=== PATIENT | male | born 1930 | race Caucasian/White ===

== ENCOUNTER 2016-12-16 17:45 | Emergency (ER) | payer MEDICARE, BC ==
[2016-12-16] MEDS ORDERED: Acetaminophen TAB* 325 MG PO ONE (19:13)
[2016-12-16 19:21] LABS: Hematocrit 34 % (42-52); Hemoglobin 11.2 g/dl (14.0-18.0); Mean Corpuscular HGB Conc 33 g/dl (31-36); Mean Corpuscular Hemoglobin 32 pg (27-31); Mean Corpuscular Volume 96 fL (80-94); Mean Platelet Volume 8 um3 (7.4-10.4); Red Blood Count 3.52 10^6/ul (4.0-5.4); Red Cell Distribution Width 14 % (10.5-15); White Blood Count 7.3 10^3/ul (3.5-10.8)
--- NOTE | 2016-12-16 19:30 | RAD ---
HISTORY: Cough COMPARISONS: November 07, 2006 VIEWS:1: Single frontal portable view of the chest at 7:15 PM FINDINGS: LINES AND TUBES a left-sided pacemaker is noted: None. CARDIOMEDIASTINAL SILHOUETTE: The cardiac silhouette is enlarged. The aorta is tortuous. The cardiomediastinal silhouette is otherwise normal for portable technique, and is stable from the previous examination. PLEURA: There is elevation left hemidiaphragm suggestive of diaphragmatic paralysis, stable. LUNG PARENCHYMA: The lung volumes are low. The lungs are clear accounting for the phase of respiration. ABDOMEN: The upper abdomen is clear. There is no subphrenic gas. BONES AND SOFT TISSUES: The patient is status post median sternotomy. IMPRESSION: 1. CARDIOMEGALY. 2. STABLE ELEVATION OF THE LEFT HEMIDIAPHRAGM. 3. LOW LUNG VOLUMES.
[2016-12-16 19:35] LABS: Urine Bacteria Absent (Absent); Urine Bilirubin Negative (Negative); Urine Glucose Negative (Negative); Urine Nitrite Negative (Negative)
[2016-12-16 19:36] LABS: Albumin 3.7 g/dL (3.2-5.2); BUN/Creatinine Ratio 20.5 (8-20); Calcium 9.3 mg/dL (8.6-10.3); EGFR African American 56.9 (>60); EGFR Non-African American 44.2 (>60); Globulin 2.8 g/dL (2-4); Potassium 4.4 mmol/L (3.5-5.0); Total Bilirubin 0.4 mg/dL (0.2-1.0); Total Protein 6.5 g/dL (6.4-8.9)
[2016-12-16 19:38] LABS: Troponin I 0.02 ng/mL (<0.04)
[2016-12-16 20:20] VITALS: BP 140/53
--- NOTE | 2016-12-16 21:29 | ED ---
Farzaneh Wilcox Auryana, scribed for Sarkis Reyes MD on 12/16/16 at 1817 . HPI Febrile Illness - HPI Summary HPI Summary: 86 year old male presents with fever starting last night/this morning. reports that she did not take his temperature but he was wearing a fleece jacket and a blanket. He also reports hot flashes, chills, rhinorrhea, mildly productive cough, SOB, and decreased urinary output. He denies any rashes, abdominal pain, or any burning or pain with urination. 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 - History of Current Complaint Chief Complaint: EDFever Time Seen by Provider: 12/16/16 17:59 Hx Obtained From: Patient Onset/Duration: Started Days Ago - 1, Still Present Timing: Constant Initial Severity: Mild Current Severity: None Pain Intensity: 0 Pain Scale Used: 0-10 Numeric Alleviating Factors: Other: - spontaneous resolution of fever Associated Signs and Symptoms: Chills, Cough - mild, SOB, Other: - decreased urinary output, rhinorrhea, hot flashes - Allergy/Home Medications Allergies/Adverse Reactions: Allergies Allergy/AdvReac Type Severity Reaction Status Date / Time No Known Allergies Allergy Verified 12/16/16 17:52 Home Medications: Home Medications Apixaban* [Eliquis*] 5 mg PO BID 12/16/16 [History Confirmed 12/16/16] Aspirin EC Low Dose* [Ecotrin EC Low Dose 81 MG*] 81 mg PO DAILY 12/16/16 [ History Confirmed 12/16/16] Atorvastatin* [Lipitor 20 MG*] 20 mg PO EVERY OTHER DAY 12/16/16 [History Confirmed 12/16/16] Atorvastatin* [Lipitor*] 40 mg PO EVERY OTHER DAY 12/16/16 [History Confirmed ] Cholecalciferol [Vitamin D3] 5,000 unit PO 12/16/16 [History] Clopidogrel TAB* [Plavix TAB*] 37.5 mg PO DAILY 12/16/16 [History Confirmed 02/24] Doxazosin 4 mg 12/16/16 [History] Losartan Potassium 100 mg PO DAILY 12/16/16 [History Confirmed 12/16/16] Metoprolol Tartrate TAB* [Lopressor TAB*] 12.5 mg PO BID 12/16/16 [History Confirmed 12/16/16] Nitroglycerin TAB 0.4 MG* 0.4 mg SL Q5M PRN 12/16/16 [History Confirmed 12/16/16 ] amLODIPine TAB* [Norvasc 5 mg TAB*] 5 mg PO DAILY 12/16/16 [History Confirmed ] PMH/Surg Hx/FS Hx/Imm Hx Cardiovascular History: Reports: 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 , Hx Hypercholesterolemia, Hx Hypertension, Hx Pacemaker/ICD - Surgical History Surgery Procedure, Year, and Place: CABG 1983 Infectious Disease History: No Infectious Disease History: Denies: Traveled Outside the [place] in Last 30 Days - Family History Known Family History: Positive: Cardiac Disease - [place] Negative: Diabetes - Social History Occupation: Retired Lives: With Family Alcohol Use: None Hx Substance Use: No Substance Use Type: Reports: None Hx Tobacco Use: No Smoking Status (MU): Never Smoked Tobacco Review of Systems Positive: Fever, Chills, Other - hot flashes Eyes: Negative Positive: Nasal Discharge Cardiovascular: Negative Positive: Shortness Of Breath, Cough - mild Gastrointestinal: Negative Negative: Abdominal Pain Positive: other - decreased urinary output . Negative: burning, pain Musculoskeletal: Negative Skin: Negative Negative: Rash Neurological: Negative Psychological: Normal All Other Systems Reviewed And Are Negative: Yes Physical Exam Triage Information Reviewed: Yes Vital Signs On Initial Exam: Initial Vitals Temp Pulse Resp BP Pulse Ox 100.7 F 78 20 182/62 95 12/16/16 17:48 12/16/16 17:48 12/16/16 17:48 12/16/16 17:48 12/16/16 17:48 Vital Signs Reviewed: Yes Appearance: Positive: Well-Appearing, No Pain Distress, Well-Nourished Skin: Positive: Warm, Skin Color Reflects Adequate Perfusion, Dry Head/Face: Positive: Normal Head/Face Inspection Eyes: Positive: Normal ENT: Positive: Normal ENT inspection Neck: Positive: Supple, Nontender Respiratory/Lung Sounds: Positive: Breath Sounds Present, Rales - crackles at the left base Cardiovascular: Positive: RRR, Leg Edema Left - pitting edema, Leg Edema Right - pitting edema Abdomen Description: Positive: Nontender, Soft Bowel Sounds: Positive: Present Musculoskeletal: Positive: Normal Neurological: Positive: Normal Psychiatric: Positive: Normal, Affect/Mood Appropriate Diagnostics - Vital Signs Vital Signs Temp Pulse Resp BP Pulse Ox 12/16/16 17:51 100.7 F 78 20 182/62 95 12/16/16 17:48 100.7 F 78 20 182/62 95 - Laboratory Lab Results: Lab Results 12/16/16 12/16/16 12/16/16 Range/Units 19:04 19:04 19:04 WBC 7.3 (3.5-10.8) 10^3/ul RBC 3.52 L (4.0-5.4) 10^6/ul Hgb 11.2 L (14.0-18.0) g/dl Hct 34 L (42-52) % MCV 96 H (80-94) fL MCH 32 H (27-31) pg MCHC 33 (31-36) g/dl RDW 14 (10.5-15) % Plt Count 179 (150-450) 10^3/ul MPV 8 (7.4-10.4) um3 Neut % (Auto) 83.9 H (38-83) % Lymph % (Auto) 6.2 L (25-47) % Harper % (Auto) 6.8 (1-9) % Eos % (Auto) 0.7 (0-6) % Baso % (Auto) 2.4 H (0-2) % Absolute Neuts (auto) 6.2 (1.5-7.7) 10^3/ul Absolute Lymphs (auto) 0.5 L (1.0-4.8) 10^3/ul Absolute Monos (auto) 0.5 (0-0.8) 10^3/ul Absolute Eos (auto) 0.1 (0-0.6) 10^3/ul Absolute Basos (auto) 0.2 (0-0.2) 10^3/ul Absolute Nucleated RBC 0 10^3/ul Nucleated RBC % 0 INR (Anticoag Therapy) 1.44 H (0.89-1.11) Sodium 136 (133-145) mmol/L Potassium 4.4 (3.5-5.0) mmol/L Chloride 107 (101-111) mmol/L Carbon Dioxide 24 (22-32) mmol/L Anion Gap 5 (2-11) mmol/L BUN 31 H (6-24) mg/dL Creatinine 1.51 H (0.67-1.17) mg/dL Est GFR ( Amer) 56.9 (>60) Est GFR (Non-Af Amer) 44.2 (>60) BUN/Creatinine Ratio 20.5 H (8-20) Glucose 100 (70-100) mg/dL Lactic Acid (0.5-2.0) mmol/L Calcium 9.3 (8.6-10.3) mg/dL Total Bilirubin 0.40 (0.2-1.0) mg/dL AST 16 (13-39) U/L ALT 16 (7-52) U/L Alkaline Phosphatase 74 (34-104) U/L Troponin I 0.02 (<0.04) ng/mL Total Protein 6.5 (6.4-8.9) g/dL Albumin 3.7 (3.2-5.2) g/dL Globulin 2.8 (2-4) g/dL Albumin/Globulin Ratio 1.3 (1-3) Urine Color Urine Appearance Urine pH (5-9) Ur Specific Townsend (1.010-1.030) Urine Protein (Negative) Urine Ketones (Negative) Urine Blood (Negative) Urine Nitrate (Negative) Urine Bilirubin (Negative) Urine Urobilinogen (Negative) Ur Leukocyte Esterase (Negative) Urine WBC (Auto) (Absent) Urine RBC (Auto) (Absent) Ur Squamous Epith Cells (Absent) Urine Bacteria (Absent) Urine Glucose (Negative) Urine Ascorbic Acid (Negative) 12/16/16 12/16/16 Range/Units 19:04 19:11 WBC (3.5-10.8) 10^3/ul RBC (4.0-5.4) 10^6/ul Hgb (14.0-18.0) g/dl Hct (42-52) % MCV (80-94) fL MCH (27-31) pg MCHC (31-36) g/dl RDW (10.5-15) % Plt Count (150-450) 10^3/ul MPV (7.4-10.4) um3 Neut % (Auto) (38-83) % Lymph % (Auto) (25-47) % Harper % (Auto) (1-9) % Eos % (Auto) (0-6) % Baso % (Auto) (0-2) % Absolute Neuts (auto) (1.5-7.7) 10^3/ul Absolute Lymphs (auto) (1.0-4.8) 10^3/ul Absolute Monos (auto) (0-0.8) 10^3/ul Absolute Eos (auto) (0-0.6) 10^3/ul Absolute Basos (auto) (0-0.2) 10^3/ul Absolute Nucleated RBC 10^3/ul Nucleated RBC % INR (Anticoag Therapy) (0.89-1.11) Sodium (133-145) mmol/L Potassium (3.5-5.0) mmol/L Chloride (101-111) mmol/L Carbon Dioxide (22-32) mmol/L Anion Gap (2-11) mmol/L BUN (6-24) mg/dL Creatinine (0.67-1.17) mg/dL Est GFR ( Amer) (>60) Est GFR (Non-Af Amer) (>60) BUN/Creatinine Ratio (8-20) Glucose (70-100) mg/dL Lactic Acid 0.8 (0.5-2.0) mmol/L Calcium (8.6-10.3) mg/dL Total Bilirubin (0.2-1.0) mg/dL AST (13-39) U/L ALT (7-52) U/L Alkaline Phosphatase (34-104) U/L Troponin I (<0.04) ng/mL Total Protein (6.4-8.9) g/dL Albumin (3.2-5.2) g/dL Globulin (2-4) g/dL Albumin/Globulin Ratio (1-3) Urine Color Yellow Urine Appearance Clear Urine pH 5.0 (5-9) Ur Specific Townsend 1.016 (1.010-1.030) Urine Protein Negative (Negative) Urine Ketones Negative (Negative) Urine Blood 1+ H (Negative) Urine Nitrate Negative (Negative) Urine Bilirubin Negative (Negative) Urine Urobilinogen Negative (Negative) Ur Leukocyte Esterase Negative (Negative) Urine WBC (Auto) Absent (Absent) Urine RBC (Auto) 2+(6-10/hpf) H (Absent) Ur Squamous Epith Cells Present H (Absent) Urine Bacteria Absent (Absent) Urine Glucose Negative (Negative) Urine Ascorbic Acid * H (Negative) Result Diagrams: 12/16/16 19:04 12/16/16 19:04 Lab Statement: Any lab studies that have been ordered have been reviewed, and results considered in the medical decision making process. - Radiology CXR Xray Interpretation: Positive (See Comments) - IMPRESSION: 1. CARDIOMEGALY. 2. STABLE ELEVATION OF THE LEFT HEMIDIAPHRAGM. 3. LOW LUNG VOLUMES. _ Radiology Interpretation Completed By: Radiologist Course/Dx - Course Course Of Treatment: Mr. Sweeney presented with fevers for a day or so with a runny nose and a mild cough. He spiked up to 103.9 here and defervesced with acetaminophen. His WBC's were normal and his CXR and U/A unremarkable. He felt completely better and wanted to go home. This may be viral or tick-borne and I recommended close F/U. - Diagnoses Provider Diagnoses: Febrile illness, acute Discharge - Discharge Plan Condition: Stable Disposition: HOME Patient Education Materials: Fever in Adults (ED) Referrals: [facility] [place] PHYSICIAN REFERRAL [Outside] - 2 Days The documentation as recorded by the Farzaneh arndt Auryana accurately reflects the service I personally performed and the decisions made by me, Sarkis Reyes MD.
[2016-12-18 18:34] LABS: B. miyamotoi PCR, B Negative (Negative); Babesia divergens/MO-1 Negative (Negative); Babesia ducani Negative (Negative); Ehrlichia ewingii/canis Negative (Negative)
--- NOTE | 2016-12-18 18:49 | CONSULT ---
Consult Consult: Mr. 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 I called him and he is feeling better and believes his fever broke last night. I sent him a script for Doxycycline and he agreed to take it.
== END 2016-12-16 20:33 | disposition home or self-care (01) ==
LOC: ED 17:45
DX: R50.9 Fever, unspecified (principal); R06.02 Shortness of breath; R05 Cough
CPT/HCPCS: 36415; 71010; 80053; 81003; 81015; 83605; 84484; 85025; 85610; 86618; 87040; 87798; 99282; A9270-GY

== ENCOUNTER 2018-05-29 14:23 | Observation (INO) | payer MEDICARE, BC ==
--- NOTE | 2018-05-29 14:41 | ED ---
Syncope/Near Syncope - HPI Summary HPI Summary: An 88 y/o male presents to [facility] with a chief complaint of syncope at 13:30 . Per EMS, the patient was found hypotensive. The patient states that before his syncopal episode he felt weak and dizzy with cold sweats. He was shopping at [employer] with his when at about 5 minutes into his shopping he felt those symptoms and went to sit down. The patient claims that he was sitting down for at least 15 minutes. His found the patient in the chair unresponsive with LOC. The patient is unsure for how long he lost consciousness. He claims that he felt fine beforehand when he was at his house. The patient currently admits to having some nausea and some weakness stating that he has little energy, but tries to walk 1/2 mile per day. The patient denies CP, SOB, dysuria, hematuria or irregular bowel movements. The patient claims that he has a good appetite. - History Of Current Complaint Chief Complaint: EDSyncope Time Seen by Provider: 05/29/18 14:27 Hx Obtained From: Patient Onset/Duration: Sudden Onset, Lasting Minutes, Resolved Timing: Intermittent Episode Lasting - Patient is unsure how long Context: Loss Of Consciousness Activity At Onset: At Rest Associated Head Trauma: No Aggravating Factor(s): Nothing Alleviating Factor(s): Nothing Associated Signs And Symptoms: Diaphoresis - before syncopal episode, Dizzy - before syncopal episode, Other - nausea - Allergies/Home Medications Allergies/Adverse Reactions: Allergies Allergy/AdvReac Type Severity Reaction Status Date / Time No Known Allergies Allergy Verified 05/29/18 15:08 Home Medications: Home Medications Acetaminophen [Acetaminophen Extra Strength] 1,000 mg PO Q6HR PRN 05/29/18 [ History Confirmed 05/29/18] Apixaban* [Eliquis*] 5 mg PO BID 05/29/18 [History Confirmed 05/29/18] Atorvastatin* [Lipitor*] 20 mg PO EVERY OTHER DAY 05/29/18 [History Confirmed ] Atorvastatin* [Lipitor*] 40 mg PO EVERY OTHER DAY 05/29/18 [History Confirmed ] Cholecalciferol CAP/TAB(NF) [Vitamin D3 CAP/TAB (NF)] 5,000 unit PO DAILY [History Confirmed 05/29/18] Doxazosin TAB* [Cardura TAB*] 4 mg PO BEDTIME 05/29/18 [History Confirmed ] Losartan TAB* [Cozaar TAB*] 100 mg PO DAILY 05/29/18 [History Confirmed 05/29/18 ] Metoprolol Tartrate TAB* [Lopressor TAB*] 12.5 mg PO BID 05/29/18 [History Confirmed 05/29/18] Nitroglycerin TAB 0.4 MG* 0.4 mg SL Q5M PRN 05/29/18 [History Confirmed 05/29/18 ] amLODIPine TAB* [Norvasc 5 mg TAB*] 5 mg PO DAILY 05/29/18 [History Confirmed ] PMH/Surg Hx/FS Hx/Imm Hx Endocrine/Hematology History: Denies: Hx Diabetes Cardiovascular History: Reports: Hx Hypertension Denies: Hx Hypercholesterolemia Infectious Disease History: No Infectious Disease History: Denies: Traveled Outside the [place] in Last 30 Days - Family History Known Family History: Positive: Cardiac Disease, Hypertension - Social History Lives: With Family Alcohol Use: None Substance Use Type: Reports: None Smoking Status (MU): Former Smoker Review of Systems Positive: Chills - prior to syncope, Skin Diaphoresis - prior to syncope. 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 Skin: The skin is warm and dry and skin color reflects adequate perfusion. HEENT: The head is normocephalic and atraumatic. The pupils are equal and reactive. The conjunctivae are clear and without drainage. Nares are patent and without drainage. Mouth reveals moist mucous membranes and the throat is without erythema and exudate. The external ears are intact. The ear canals are patent and without drainage. The tympanic membranes are intact. Neck: The neck is supple with full range of motion and non-tender. There are no carotid bruits. There is no neck vein distension. Respiratory: Chest is non-tender. Lungs are clear to auscultation and breath sounds are symmetrical and equal. Cardiovascular: Heart is regular rate and rhythm. There is no murmur or rub auscultated. There is no peripheral edema and pulses are symmetrical and equal. Abdomen: The abdomen is soft and non-tender. There are normal bowel sounds heard in all four quadrants and there is no organomegaly palpated. Musculoskeletal: There is no back tenderness noted. Extremities are non-tender with full range of motion. There is good capillary refill. There is no peripheral edema or calf tenderness elicited. Neurological: Patient is alert and oriented to person, place and time. The patient has symmetrical motor strength in all four extremities. Cranial nerves are grossly intact. Deep tendon reflexes are symmetrical and equal in all four extremities. Psychiatric: The patient has an appropriate affect and does not exhibit any anxiety or depression. Triage Information Reviewed: Yes Vital Signs On Initial Exam: Initial Vitals Temp Pulse Resp BP Pulse Ox 97.1 F 65 13 140/67 95 05/29/18 14:24 05/29/18 14:24 05/29/18 14:24 05/29/18 14:24 05/29/18 14:24 Vital Signs Reviewed: Yes Diagnostics - Vital Signs Vital Signs Temp Pulse Resp BP Pulse Ox 05/29/18 14:24 97.1 F 65 13 140/67 95 - Laboratory Result Diagrams: 05/29/18 14:47 05/29/18 14:47 Lab Statement: Any lab studies that have been ordered have been reviewed, and results considered in the medical decision making process. - Radiology CXR Radiology Interpretation Completed By: Radiologist Summary of Radiographic Findings: POSTSURGICAL CHANGES, NO EVIDENCE FOR ACUTE FINDING. ED physician has reviewed this imaging report. - EKG 14:26 Cardiac Rate: NL - 60 bpm EKG Rhythm: Sinus Rhythm Summary of EKG Findings: Normal sinus rhythm, normal ST, no ectopy, no STEMI Course/Dx Course Of Treatment: Mr. Merrill presented to the emergency department after a significant syncopal episode. He was out shopping with his and began to feel lightheaded and clammy and excused himself to go sit down. When his rejoined and he was unresponsive in the chair. He did wake up and by the time the ambulance got there he was starting to feel better and by the time he got here he felt well. He was nontoxic in appearance and his vital signs were stable. His initial workup here in the emergency department was unremarkable and I asked the hospitalist to evaluate him for his syncope. - Diagnoses Provider Diagnoses: Syncope - Physician Notifications Discussed Care of Patient With: Meche Prater Time Discussed With Above Provider: 16:00 Instructed by Provider To: Admit As Inpatient Discharge - Sign-Out/Discharge Documenting (check all that apply): Patient Departure - Admit - Discharge Plan Condition: Fair Disposition: ADMITTED TO [facility] - Billing Disposition and Condition Condition: FAIR Disposition: Admitted to [facility] - Attestation Statements Document Initiated by Scribe: Yes Documenting Scribe: Caleb Cruz Provider For Whom Artibe is Documenting (Include Credential): Sarkis Reyes MD Scribe Attestation: Caleb Wilcox, scribed for Sarkis Reyes MD on 05/29/18 at 1757. Scribe Documentation Reviewed: Yes Provider Attestation: The documentation as recorded by the Caleb arndt accurately reflects the service I personally performed and the decisions made by me, Sarkis Reyes MD Status of Scribe Document: Viewed
[2018-05-29 14:56] LABS: ABS Basophils 0.1 10^3/ul (0-0.2); ABS Eosinophils 0.2 10^3/ul (0-0.6); ABS Lymphocytes 1.2 10^3/ul (1.0-4.8); ABS Monocytes 0.3 10^3/ul (0-0.8); ABS Neutrophils 4.8 10^3/ul (1.5-7.7); ABS Nucleated RBC 0 10^3/ul; Eosinophil % 3.1 %; Hematocrit 33 % (42-52); Hemoglobin 11.1 g/dl (14.0-18.0); Lymphocyte % 18.1 %; Mean Corpuscular HGB Conc 33 g/dl (31-36); Mean Corpuscular Hemoglobin 32 pg (27-31); Mean Corpuscular Volume 96 fL (80-94); Mean Platelet Volume 8.6 fL (7.4-10.4); Nucleated Red Blood Cells % 0; Platelet Count 212 10^3/ul (150-450); Red Blood Count 3.46 10^6/ul (4.00-5.40); Red Cell Distribution Width 14 % (10.5-15); White Blood Count 6.6 10^3/ul (3.5-10.8)
[2018-05-29 15:08] LABS: INR 1.48 (0.77-1.02)
[2018-05-29 15:23] LABS: Albumin 3.4 g/dL (3.2-5.2); Albumin/Globulin Ratio 1.3 (1-3); BUN/Creatinine Ratio 19.8 (8-20); C Reactive Protein 3.08 mg/L (<8.01); Calcium 9.1 mg/dL (8.6-10.3); EGFR Non-African American 36.7 (>60); Globulin 2.7 g/dL (2-4); Magnesium 1.9 mg/dL (1.9-2.7); Potassium 4.9 mmol/L (3.5-5.0); Total Bilirubin 0.4 mg/dL (0.2-1.0); Total Protein 6.1 g/dL (6.4-8.9)
[2018-05-29 15:42] LABS: TSH (Thyroid Stimulating Horm) 6.73 mcIU/mL (0.34-5.60)
[2018-05-29] MEDS: Metoprolol Tartrate TAB* 25 MG PO SCH (20:24)
[2018-05-29] MEDS: Apixaban* 5 MG TAB PO SCH (20:24)
[2018-05-29] MEDS: Doxazosin TAB* 2 MG PO SCH (20:24)
--- NOTE | 2018-05-29 21:43 | HP ---
CC: Dr. Donis; Dr. Mills * HISTORY AND PHYSICAL: DATE OF ADMISSION: 05/29/18 PROVIDER: Dayanara Mccullough NP PRIMARY CARE PROVIDER: Dr. Donis. CARDIOLOGY PROVIDER: Dr. Mills. ATTENDING PHYSICIAN: Dr. Prater * (dictated by Dayanara Mccullough NP). CHIEF COMPLAINT: Syncope. HISTORY OF PRESENT ILLNESS: Mr. Sweeney is an 88-year-old male with a past medical history significant for tachybrady syndrome, status post pacer; hypertension; hyperlipidemia; coronary artery disease, status post CABG and multiple stents, who presented to the ED today after experiencing a syncopal episode. The patient reports that over the past 2 weeks, he has been having periodic episodes of lightheadedness. He had one such episode of lightheadedness this morning after taking his blood pressure medication, which resolved. He then went to the store with his and suddenly felt weak and dizzy with cold sweats and he went to sit down. When his came over to check on him, she found him unresponsive in the chair and she is unsure the amount of time he had lost consciousness. She reported that he looked very pale and took a little bit to come to but was unable to tell me how long. She called EMS and when they arrived, they found that his blood pressure was in the 70s systolically. Upon arrival in the ED, the patient had an EKG, which showed a paced rhythm with rates in the 60s. He had a chest x- ray, which showed no evidence of acute findings. In the ED, the patient denied any chest pain, shortness of breath, cough, dysuria, focal weakness, numbness, or tingling in his extremities. Of note, the patient did have bronchitis a few weeks ago and was treated with azithromycin; however, he reports his symptoms have resolved. He does not have any fever or chills and has been in his usual state of health. He does report having some shortness of breath with exertion, but he says that this has been stable over the years. He does not report feeling any palpitations or like his heart was racing. He has had his regular appetite and has been eating and drinking his normal. He does report some occasional nausea , but no vomiting. The hospitalist team was asked to admit this patient for further workup of his syncope. PAST MEDICAL HISTORY: Coronary artery disease, status post CABG and multiple stents; tachybrady syndrome, status post dual-chamber pacemaker placement; hypertension; hyperlipidemia. PAST SURGICAL HISTORY: CABG in 1983; pacemaker implantation in 2015 and several stents, most recent in May 2016. MEDICATIONS: Home medications: 1. Losartan 100 mg p.o. daily. 2. Lipitor alternating 20 mg and 40 mg every other day, so one day he takes 20 mg and the next day he takes 40 mg and then the day after that 20 again. 3. Eliquis 5 mg p.o. b.i.d. 4. Acetaminophen 1000 mg p.o. q.6 hours p.r.n. 5. Amlodipine 5 mg p.o. daily. 6. Metoprolol tartrate 12.5 mg p.o. b.i.d. 7. Nitroglycerin tabs 0.4 mg sublingual q.5 minutes p.r.n.; however, the patient reports having never taken this medication ever. 8. Vitamin D3 5000 units p.o. daily. 9. Cardura 4 mg p.o. at bedtime. ALLERGIES: The patient has no known allergies. FAMILY HISTORY: The patient has a strong family history of heart disease in both his mother, father, and son. The patient did not have any family history of diabetes or cancer. SOCIAL HISTORY: The patient is a former smoker. He smoked 3 packs a day from the age of 20 to 34 and smoked occasional cigars until 1983. The patient does not drink any alcohol. The patient would like to be a DNR. I have completed MOLST form with him. The patient's medical decision maker will be his , Mallory Sweeney. REVIEW OF SYSTEMS: I performed a 14-point review of systems. All the pertinent positives and negatives are mentioned in the history of present illness. The remaining review of systems is negative. PHYSICAL EXAMINATION GENERAL: The patient is alert, pleasant, appears to be in no acute distress. VITAL SIGNS: Temperature 97.1, heart rate 65, respiratory rate 19, O2 sat 95% on room air, blood pressure 140/67. HEENT: Normocephalic, atraumatic. Pupils are equal, round, and reactive to light and accommodation. Extraocular movements are intact. NECK: Supple. No lymphadenopathy noted. No JVD appreciated. RESPIRATORY: No accessory muscle use and lungs are clear to auscultation. Normal work of breathing. CARDIAC: Regular rate and rhythm. S1 and S2 present. The patient does have a 2/6 systolic murmur. ABDOMEN: Soft, nontender, nondistended. There are bowel sounds x4. EXTREMITIES: No lower extremity edema. DP and PT pulses are 2+ and symmetric. MUSCULOSKELETAL: No clubbing or cyanosis noted. The patient exhibited 5/5 strength in all 4 extremities. No droop or drift. NEURO: The patient is alert and oriented x3. PSYCH: The patient is calm and cooperative. SKIN: There are no rashes or abnormalities seen. DIAGNOSTIC STUDIES/LAB DATA: Sodium 139, potassium 4.9, chloride 109, carbon dioxide 26, anion gap 4, BUN 35, creatinine 1.77, glucose 120, lactic acid 0.9, calcium 9.1, magnesium 1.9. Total bili 0.4, AST 14, ALT 10, alk phos 68. Troponin 0.03. CRP 3.08. BNP 162. Total protein 6.1, albumin 3.4, globulin 2.7, albumin- globulin ratio 1.3. TSH 6.73. INR 1.48. White blood cells 6.6, RBC 3.46, hemoglobin 11.1, hematocrit 33, MCV 96, MCH 32. UA is pending. The patient's chest x-ray demonstrates postsurgical changes. No evidence for acute findings. EKG with sinus rhythm, no ST elevation with rates in the 60s. ASSESSMENT: The patient is an 88-year-old male with a past medical history significant for tachybrady syndrome, status post pacemaker placement; coronary artery disease, status post coronary artery bypass graft and stents, who presented to the ED with syncope and will be admitted to the hospitalist service for further workup of the syncope. PLAN: 1. Syncope. Differentials include dehydration and orthostatic hypotension versus vasovagal versus cardiac in the setting of an extensive cardiac history. I will monitor this patient on telemetry. EKG was without eveidence of ischemia and the patient's initial troponin was 0.03; however, I will continue to monitor troponins for 2 more blood draws. I will put in for an interrogation of his pacemaker to monitor for any arrhythmias. I will also order an echo for him to evaluate LV function and valve function. The patient does have a slight acute kidney injury above his baseline, which suggests he might have some dehydration as well. I will give him IV fluids at 75 mL per hour. I will also order orthostatic vitals. It is possible that there is infectious component of this; however, as the patient is afebrile and without leukocytosis, this is less likely. UA is pending, however. Also, of note, the patient does have a TSH of 6.73, which could be contributing and I will order a free T4 to follow up on this. 2. Coronary artery disease, status post stents. I will continue the patient's Lipitor as well as his Eliquis, which the patient says that he was put on after stopping aspirin and Plavix after his stents. I will also continue the patient' s metoprolol. 3. Hypertension. I will continue the patient's losartan and Norvasc and Cardura; however, these might need to be adjusted going forward if the patient is indeed having frequent episodes of orthostatic hypotension. 4. Acute kidney injury. The patient has a creatinine of 1.77 today, which is elevated from a few days ago when his creatinine was 1.44. I will give him IV fluids at 75 mL an hour, as this could be secondary to hypovolemia. 5. Macrocytic hypochromic anemia. The patient's H and H is stable and this appears stable at 11.1 and 33 and this appears to be his baseline compared to previous visit from 2017. 6. Diet. The patient can have a heart-healthy diet. 7. DVT prophylaxis. Heparin subcu. 8. Code status. DNR. 9. Disposition. Observation. Anticipate discharge to home when medically stable. TIME SPENT: Time spent for this admission was 60 minutes and 35 minutes was spent with the patient discussing medications, past medical history, and events leading up to the arrival today and performing a physical exam. The case has been reviewed with the attending, Dr. Prater, who agrees with the plan of care. DAYANARA MCCULLOUGH, [place] [id number]/[facility] #: [id number] [place]
[2018-05-29 22:40] LABS: Urine Appearance Cloudy; Urine Bilirubin Negative (Negative); Urine Blood Negative (Negative); Urine Color Yellow; Urine Glucose Negative (Negative); Urine Ketones Negative (Negative); Urine Nitrite Negative (Negative); Urine Protein Negative (Negative); Urine Specific Gravity 1.025 (1.010-1.030); Urine Urobilinogen Negative (Negative)
[2018-05-30] MEDS: NS 0.9% 1000 ML* 1,000 ML IV SCH ×2 (04:41→18:27)
[2018-05-30 06:49] LABS: ABS Basophils 0.1 10^3/ul (0-0.2); ABS Eosinophils 0.4 10^3/ul (0-0.6); ABS Lymphocytes 1.9 10^3/ul (1.0-4.8); ABS Monocytes 0.4 10^3/ul (0-0.8); ABS Neutrophils 4.1 10^3/ul (1.5-7.7); ABS Nucleated RBC 0 10^3/ul; Eosinophil % 5.6 %; Hematocrit 31 % (42-52); Hemoglobin 10.3 g/dl (14.0-18.0); Lymphocyte % 26.9 %; Mean Corpuscular HGB Conc 33 g/dl (31-36); Mean Corpuscular Hemoglobin 32 pg (27-31); Mean Corpuscular Volume 96 fL (80-94); Mean Platelet Volume 8.7 fL (7.4-10.4); Nucleated Red Blood Cells % 0; Platelet Count 183 10^3/ul (150-450); Red Blood Count 3.24 10^6/ul (4.00-5.40); Red Cell Distribution Width 15 % (10.5-15); White Blood Count 6.9 10^3/ul (3.5-10.8)
[2018-05-30 07:05] LABS: BUN/Creatinine Ratio 23.2 (8-20); Blood Urea Nitrogen 35 mg/dL (6-24); CO2 Carbon Dioxide 24 mmol/L (22-32); Calcium 8.8 mg/dL (8.6-10.3); Glucose 96 mg/dL (70-100); Potassium 4.3 mmol/L (3.5-5.0); Sodium 140 mmol/L (135-145)
[2018-05-30 07:07] LABS: Anion Gap 4 mmol/L (2-11); Chloride 112 mmol/L (101-111)
[2018-05-30 07:45] LABS: Free T4 1.05 ng/dL (0.61-1.12)
[2018-05-30] MEDS: Apixaban* 5 MG TAB PO SCH ×2 (08:43→20:27)
[2018-05-30] MEDS: Metoprolol Tartrate TAB* 25 MG PO SCH ×2 (08:43→20:28)
[2018-05-30] MEDS ORDERED: Atorvastatin* 20 MG TAB PO SCH (09:00)
[2018-05-30] MEDS ORDERED: amLODIPine TAB* 5 MG PO SCH (09:00)
[2018-05-30] MEDS ORDERED: Losartan TAB* 25 MG PO SCH (09:00)
--- NOTE | 2018-05-30 10:40 | PN ---
Subjective Date of Service: 05/30/18 Interval History: Pt is feeling well today, and denies any dizziness, lightheadedness, diaphoresis , hot/cold flashes, or feeling faint. He states that once the fluid was started , his "head cleared up." He states that his cardiac medications were last adjusted over one year ago. He just moved here from [place] and will see his cell attendant helper at the beginning of June. He has a history of AF, bypass surgery, and stent placement. He has a pacemaker. He states that he feels short of breathe, but that this is his baseline and remains unchanged. In the past, he has had both cardiac and pulmonary work-ups for this, both revealing no cause for shortness of breath. Pt states that he is chronically anemic. Objective Active Medications: Amlodipine Besylate (Norvasc Tab*) 5 mg PO DAILY PRECIOUS Apixaban (Eliquis*) 5 mg PO BID PRECIOUS Atorvastatin Calcium (Lipitor*) 20 mg PO EVERY OTHER DAY PRECIOUS Atorvastatin Calcium (Lipitor*) 40 mg PO EVERY OTHER DAY PRECIOUS Doxazosin Mesylate (Cardura Tab*) 4 mg PO BEDTIME PRECIOUS Sodium Chloride (Ns 0.9% 1000 Ml*) 1,000 mls @ 75 mls/hr IV PER RATE PRECIOUS Losartan Potassium (Cozaar Tab*) 100 mg PO DAILY PRECIOUS Metoprolol Tartrate (Lopressor Tab*) 12.5 mg PO BID PRECIOUS Vital Signs - 8 hr Vital Signs: Temp Pulse Resp BP Pulse Ox 97.3 F 59 16 136/59 94 05/30/18 07:37 05/30/18 07:37 05/30/18 08:05 05/30/18 07:37 05/30/18 07:37 Oxygen Devices in Use Now: None Eyes: No Scleral Icterus, PERRLA, - - EOMI. Ears/Nose/Mouth/Throat: NL Teeth, Lips, Gums, Mucous Membranes Moist Neck: NL Appearance and Movements; NL JVP, Trachea Midline Respiratory: Symmetrical Chest Expansion and Respiratory Effort, Clear to Auscultation Cardiovascular: RRR, - - Systolic murmur; withgout rubs, clicks, gallops. Without JVD, carotid bruits. Abdominal: NL Sounds; No Tenderness; No Distention, No Hepatosplenomegaly Extremities: No Clubbing, Cyanosis - B/l LE 1+ pitting edema Skin: No Rash or Ulcers Neurological: Alert and Oriented x 3, NL Sensation Result Diagrams: 05/30/18 06:42 05/30/18 06:42 Assess/Plan/Problems-Billing Assessment: - Patient Problems (1) Syncope Code(s): R55 - SYNCOPE AND COLLAPSE SNOMED Code(s): 863736645 Comment: -Symptoms resolved; pt feeling well -Troponins WNL, orthostatics WNL, TSH elevated with normal free T4 -Telemetry monitoring overnight revealed no abnormal episodes -Pacemaker interrogation reveals prolonged episode of atrial flutter -Await ECHO results -Consult Dr. Chen ordered (2) Chronic anemia Code(s): D64.9 - ANEMIA, UNSPECIFIED SNOMED Code(s): 000160671 Comment: -Drop in Hgb from 11.1 to 10.3 is likely dilutional -Macrocytic anemia- pt is not deficient in Folate or B12 (3) Systolic murmur Code(s): R01.1 - CARDIAC MURMUR, UNSPECIFIED SNOMED Code(s): 47066783 Comment: -Systolic murmur noted on auscultation -ECHO to be performed today (4) Acute kidney injury Code(s): N17.9 - ACUTE KIDNEY FAILURE, UNSPECIFIED SNOMED Code(s): 04859225 Comment: -Likely due to hypovolemia -Resolved; Cr now at baseline at 1.44 (5) Coronary artery disease Code(s): I25.10 - ATHSCL HEART DISEASE OF [place] CORONARY ARTERY W/O ANG PCTRS SNOMED Code(s): 72060405 Comment: -Continue metoprolol, Lipitor, Eliquis (6) Hypertension Current Visit: Yes Status: Acute Code(s): I10 - ESSENTIAL (PRIMARY) HYPERTENSION SNOMED Code(s): 07822202 Comment: -Continue medication Status and Disposition: D/c home if stable once work up is completed.
[2018-05-30] MEDS ORDERED: Perflutren Lipid Microsphere* 3 ML VIAL ONE (10:47)
[2018-05-30 11:16] LABS: Folate > 20.00 ng/mL (>3.99)
--- NOTE | 2018-05-30 13:03 | ECHO ---
Patient: ANDERSON GONZALES [facility] Rec#: [id number] : 1930 Date: 05/30/2018 Age: 88y Height: 173 cm / 68.1 in Weight: 100 kg / 220.4 lbs Sex: M BSA: 2.13 Room#: 438 Admit Date#: 05/29/2018 Type: Inpatient Referring: MARSHA MCCULLOUGH Reading: Tono Fraser MD Balance Recesser: Loraine Ureña [facility] Transthoracic Echocardiogram Indication: Syncope BP: 137/58 HR: 60 Rhythm: Paced Findings History: Tachy-ernestina s/p/ pacer,HTN,HLD,CAD with CABG'84 and PCI. Technical Comments: The study is technically limited due to patient body habitus. Completed at 1140. Definity used to enhance images. Left Ventricle: The left ventricular chamber size is normal. There is mild to moderately decreased left ventricular systolic function. The estimated ejection fraction is 35-40%. Post surgical hypokinesis of the interventricular septum is observed consistent with coronary artery bypass. There is abnormal ventricular septal wall motion consistent with right ventricular pacemaker. Abnormal left ventricular diastolic function is observed. Abnormal left ventricular diastolic filling is observed, consistent with impaired relaxation. The mid inferolateral, apical septal, apical anterior, apical lateral, and apical inferior wall segments are hypokinetic (score 2). The basal inferior wall segment is akinetic (score 3). The basal inferolateral wall segment is dyskinetic (score 4). Overall wallmotion score index is 1.63 Left Atrium: The left atrium is mild to moderately dilated. Right Ventricle: The right ventricle is not well visualized. A pacemaker wire is visualized in the right ventricle. Right Atrium: The right atrial cavity size is normal. A pacemaker wire is visualized in the right atrium. Aortic Valve: The aortic valve is trileaflet. The aortic valve leaflets are moderately thickened. Systolic excursion of the aortic valve cusps is reduced. Equal velocities with Pedoff and Standard probes. There is moderate aortic stenosis.by continuity. The peak velocities and gradient may be underestimated due to the suboptimal doppler angles and the reduced cardiac output. The Aortic stenosis appears to be moderate to severe by 2d. Consider low gradient aortic stenosis. Mitral Valve: The mitral valve leaflets are mildly thickened. There is trace to mild mitral regurgitation. There is no evidence of mitral stenosis. Tricuspid Valve: The tricuspid valve leaflets are normal. There is trace to mild tricuspid regurgitation. Unable to estimate the right ventricular systolic pressure. There is evidence that pulmonary hypertension may be underestimated. There is no tricuspid stenosis. Pulmonic Valve: The pulmonic valve structure is not well visualized. Pericardium: The pericardium appears normal. Aorta: The ascending aorta is not well visualized. There is no dilatation of the aortic arch. There is no dilation of the aortic root. Pulmonary Artery: The main pulmonary artery is not well visualized. Venous: The venous system is not well visualized. Contrast: Definity was used to optimize study. A total of 4 ml used. Intravenous contrast was used to enhance endocardial border definition. Conclusions There is mild to moderately decreased left ventricular systolic function. The estimated ejection fraction is 35-40%. Post surgical hypokinesis of the interventricular septum is observed consistent with coronary artery bypass. Abnormal left ventricular diastolic filling is observed, consistent with impaired relaxation. The left atrium is mild to moderately dilated. There is moderate aortic stenosis.by continuity. The peak velocities and gradient may be underestimated due to the suboptimal doppler angles and the reduced cardiac output. The Aortic stenosis appears to be moderate to severe by 2d. Consider low gradient aortic stenosis. There is trace to mild mitral regurgitation. There is trace to mild tricuspid regurgitation. There is evidence that pulmonary hypertension may be underestimated. Decrease in EF from 60-65% . The aortic valve area was calculated at 1.3 cm2 last time.(however, the report decribed aortci sclerosis with "normal aortic valve leaflet excursion". Measurements Name Value Normal Range RVDdMajor (2D) 3.8 cm (2.2 - 4.4) IVSd (2D) 0.7 cm (0.6 - 1) LVPWd (2D) 0.7 cm (0.6 - 1) LVIDd (2D) 3.6 cm (3.6 - 5.4) LVIDs (2D) 2.9 cm - LV FS (2D) 19 % (25 - 45) Aortic Annulus 1.8 cm (1.4 - 2.6) Ao root diameter (2D) 3.2 cm (2.1 - 3.5) Aortic arch 2.5 cm (1.8 - 3.4) Descending Ao 0.7 cm - LA dimension (AP) 2D 4.4 cm (2.3 - 3.8) Name Value Normal Range MV E-wave Vmax 0.7 m/sec - MV deceleration time 243 msec - MV A-wave Vmax 0.7 m/sec - MV E:A ratio 1.1 ratio - LV septal e' Vmax 0.05 m/sec - LV lateral e' Vmax 0.09 m/sec - Name Value Normal Range AV Vmax 2.1 m/sec - AV VTI 43.9 cm - AV peak gradient 17 mmHg - AV mean gradient 7 mmHg - LVOT diameter 2 cm - LVOT Vmax 0.5 m/sec - LVOT VTI 19.5 cm - LVOT peak gradient 1 mmHg - STARR (continuity Vmax) 0.7 cm2 - STARR (continuity VTI) 1.4 cm2 - Wallmotion BAS Normal BA Normal BAL Normal MITRA Dyskinetic BI Akinetic BIS Normal MAS Normal MA Normal MAL Normal MIL Hypokinetic HI Normal MIS Normal Hypokinetic AA Hypokinetic AL Hypokinetic AI Hypokinetic APEX Hypokinetic
--- NOTE | 2018-05-30 16:52 | CONS ---
CC: Dr. Tono Fraser; Dr. Mills CARDIOLOGY CONSULTATION: DATE OF CONSULT: CONSULTING PROVIDER: JACQUELINE Huang REASON FOR EVALUATION: Syncope, history of coronary disease, aortic valve disease, tachy-ernestina syndrome. HISTORY OF PRESENT ILLNESS: This is an 88-year-old gentleman who has a history of remote bypass surgery and multiple revascularizations by angioplasty since then, the last one was approximately 2 years ago. At that time, the patient reported he had his left main stented. He said that over the last year he has noted some decrease in his exercise capacity starting about 6 months or so. He said he used to be able to walk a mile in 20 minutes, stopping twice; now he can only walk a half mile in 20 minutes, stopping twice. His who accompanies him also says that he is more fatigued over the last 2 months and has less energy. He says some days he feels "logy." He can feel a fullness in his head which he attributes to sinuses, but he said that there is a more profound weakness recently. No chest pain, no dyspnea on exertion, just fatigue with exertion. He said he has never had chest pain with his coronary issues. He was followed in [place] until recently when he relocated to [place] to be with his son and his son's family in September. Yesterday, he took his medicines at about 8 o'clock in the morning. He had a glass of orange juice and a cup of coffee, but did not eat or drink anything else after that. He went to [facility] and was walking around and said that he felt poorly. He felt "stuffed" in the head and a little lightheaded. He told his he is going to go sit down. He sat for a few minutes and then decided to move to another location in the front of the store. He got up and walked to the next location and sat down and then felt sweaty and warm, got nauseated and felt clammy, and his came over and said that he passed out. There was no incontinence. Apparently, the pneumatic press hand were called and he was found to have a blood pressure in the 70s. He got some fluids and in the ER, he had a paced rhythm in the 60s. He was feeling better at that time. He says that occasionally he will have episodes of near syncope. He said he has had 2 episodes in the last 6 months. They usually occur at rest with minimal exertion and he feels clammy and his blood pressure goes down a couple of minutes and then resolves. He also said in the remote past he had some episodes in the 1970s and had a medical evaluation which was negative. He also had a spell when he lived in [place] and when he lived in [place] many years ago. He said normally his blood pressure runs in the 130s to 135 range. He denies fevers, chills, sweats, nausea, or vomiting. He does have some mild renal insufficiency which has developed recently. He does have sleep apnea, but is not compliant with his mask. Denies any change in his weight. He has some mild edema of his right lower extremity, which is chronic. His medications as an outpatient include amlodipine 5 mg daily, Eliquis 5 mg b.i.d., atorvastatin 20 mg every other day, atorvastatin 40 mg every other day, Cardura 4 mg at bedtime, losartan 100 mg daily, metoprolol 12.5 mg b.i.d. He is not on aspirin. PAST MEDICAL HISTORY: Includes coronary disease, status post coronary bypass grafting in 1983 and 3 stents since then, the last one 2 years ago in his left main as per the patient. He has a history of hypertension, hyperlipidemia, paroxysmal atrial fibrillation first noted 2 years ago. 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 He has renal insufficiency and episodes of syncope over the years. He also was found to have aortic stenosis on his echo today and apparently had some restriction of his leaflets a year ago with a valve area of 1.3 based on the report then. PAST SURGICAL HISTORY: Includes coronary bypass grafting. ALLERGIES: He said he has had some hay fever, but no drug allergies. SOCIAL HISTORY: He is . He had 2 sons, one suddenly at age 39. He has a brother who is 18 months older and has renal insufficiency and cancer. No coronary disease. 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 REVIEW OF SYSTEMS: Review of systems x10 was negative except as above. PHYSICAL EXAM: He is a well-developed obese gentleman, in no apparent distress. No significant JVD. Carotids delayed and diminished with a transmitted murmur or bruit on the left and none on the right. Atraumatic, normocephalic. Extraocular muscles intact. Sclerae anicteric. No cervical adenopathy. Cardiac Exam: S1, S2 with a 2/6 systolic ejection murmur at the left sternal border radiating across the precordium, single S2. Chest was clear. No CVAT. Abdomen: Obese. Bowel sounds present. Femoral pulses intact with bruits bilaterally. There is 1+ edema in the right lower extremity , trace on the left. Distal pulses diminished. Negative Homans sign. Motor strength 5/5 bilaterally. Deep tendon reflexes 2/4. Alert and oriented x3. DIAGNOSTIC STUDIES/LAB DATA: His pacemaker interrogation from 05/30/18 at 9:58 a.m. revealed paroxysmal atrial fibrillation with the last episode occurring on 05/29/18 at 8:01 a.m. which lasted for 50 minutes with a peak heart rate of 132 , and he had a longer episode starting at 2:20 a.m. which lasted for 5 hours and 39 minutes. It says his AFib burden since yesterday was 6.3%, total burden was 1.3%. His rates during mode switching are mostly in the 70 to 120 range, but occasionally are faster. His atrial rates appeared to be fairly regular as though he is in atrial flutter. His chest x-ray revealed old surgery, but no acute changes. His EKG revealed sinus rhythm or atrial paced rhythm at 60 with counterclockwise rotation. No acute changes and his EKG from January 22 revealed atrial paced rhythm with similar findings, counterclockwise rotation. His echo revealed mild to moderately decreased LV function, EF of 35% to 40%. Hypokinesis of the interventricular septum consistent with his remote surgery. Abnormal diastolic function, moderate left atrial enlargement, moderate aortic stenosis by continuity. The peak velocity and gradient may be underestimated due to technical issues and the reduced cardiac output. Aortic stenosis appeared to be moderate to severe by 2D, consider low-gradient aortic stenosis, trace to mild MR, trace to mild TR. Pulmonary hypertension may be underestimated. Decrease in EF compared to March 2017 was 60% to 65%. The aortic valve area calculated at 1.3 cm2 last time; however, the report described aortic sclerosis with normal aortic valve leaflet excursion. Laboratories include moderate anemia with hematocrit of 31, hemoglobin of 10.3. Sodium 140, potassium of 4.3, BUN of 35, creatinine of 1.51. TSH is 6.73. Troponins 0.03, 0.02, and 0.01. BNP elevated at 162. IMPRESSION AND PLAN: My impression is that Mr. Sweeney had an episode of syncope of unclear etiology. He also has newly diagnosed aortic stenosis as well as newly documented LV dysfunction, raised the possibility of a tachycardia -induced cardiomyopathy versus progression of his coronary disease. He also gives a history of decreased exercise tolerance over the recent month, which may also indicate the progression of his valvular heart disease and/or his coronary disease. I discussed this with him and his at length and I would recommend the followin. I suggest that we avoid his excessive afterload reducing agents and discontinue amlodipine and losartan. 2. He is to begin Cardizem 120 mg a day to try to better control his heart rate and AFib and avoid afterload reduction. 3. Would observe overnight and continue to monitor his heart rate and blood pressures. 4. He is to avoid dehydration, which may contribute to a vasovagal syncope in the setting of moderate aortic stenosis. 5. I would suggest repeat evaluation for progression of his coronary disease with a cardiac catheterization or nuclear stress test depending on his clinical course. It is possible his LV function will improve with better rate control. I would consider further evaluation of his aortic stenosis with a KIZZY at some point. I would discuss the findings with Dr. Mills. Further recommendations will depend on his clinical course. [id number]/[facility] #: [id number] [place]
[2018-05-30] MEDS: Doxazosin TAB* 2 MG PO SCH (20:28)
[2018-05-31] MEDS: Metoprolol Tartrate TAB* 25 MG PO SCH (07:54)
[2018-05-31] MEDS: Apixaban* 5 MG TAB PO SCH (07:54)
[2018-05-31] MEDS: NS 0.9% 1000 ML* 1,000 ML IV SCH (07:55)
[2018-05-31] MEDS ORDERED: Atorvastatin* 40 MG TAB PO SCH (09:00)
[2018-05-31] MEDS ORDERED: Diltiazem CD CAP* 120 MG PO SCH (09:00)
[2018-05-31 12:03] VITALS: BP 135/58
--- NOTE | 2018-05-31 13:41 | DCNOTE ---
Subjective Date of Service: 05/31/18 Interval History: patient reports he is ready to go home. saw Dr. Mills today and reviewed discharge plan. He states he understands. at bedside. Pt denies any complaints today Objective Active Medications: Apixaban (Eliquis*) 5 mg PO BID [facility] Last Admin: 05/31/18 07:54 Dose: 5 mg Atorvastatin Calcium (Lipitor*) 20 mg PO EVERY OTHER DAY [facility] Last Admin: 05/30/18 08:43 Dose: 20 mg Atorvastatin Calcium (Lipitor*) 40 mg PO EVERY OTHER DAY [facility] Last Admin: 05/31/18 07:58 Dose: 40 mg Diltiazem HCl (Cardizem Cd Cap*) 120 mg PO DAILY [facility] Last Admin: 05/31/18 07:54 Dose: 120 mg Doxazosin Mesylate (Cardura Tab*) 4 mg PO BEDTIME [facility] Last Admin: 05/30/18 20:28 Dose: 4 mg Sodium Chloride (Ns 0.9% 1000 Ml*) 1,000 mls @ 75 mls/hr IV PER RATE [facility] Last Admin: 05/31/18 07:55 Dose: 75 mls/hr Metoprolol Tartrate (Lopressor Tab*) 12.5 mg PO BID [facility] Last Admin: 05/31/18 07:54 Dose: 12.5 mg Vital Signs - 8 hr 05/31/18 05/31/18 07:32 11:51 Temperature 97.5 F 97.6 F Pulse Rate 62 59 Respiratory 18 21 Rate Blood Pressure 152/67 135/58 (mmHg) O2 Sat by Pulse 95 97 Oximetry Oxygen Devices in Use Now: None Appearance: 88 yo male A+Ox3 in NAD Eyes: No Scleral Icterus, PERRLA Ears/Nose/Mouth/Throat: NL Teeth, Lips, Gums, Mucous Membranes Moist Neck: NL Appearance and Movements; NL JVP Respiratory: Symmetrical Chest Expansion and Respiratory Effort, Clear to Auscultation Cardiovascular: NL Sounds; No Murmurs; No JVD, RRR, No Edema Abdominal: NL Sounds; No Tenderness; No Distention, - - obese Extremities: No Clubbing, Cyanosis Skin: No Rash or Ulcers, No Nodules or Sclerosis Neurological: Alert and Oriented x 3, NL Sensation, NL Gait, NL Muscle Strength and Tone Lines/Tubes/Other Access: Clean, Dry and Intact Peripheral IV Nutrition: Taking PO's Result Diagrams: 05/30/18 06:42 05/30/18 06:42 Assess/Plan/Problems-Billing Assessment: - Patient Problems (1) Syncope Comment: -Symptoms resolved; unclear etiology. Possibly dehydration. -Troponins WNL, orthostatics WNL, TSH elevated with normal free T4 -Telemetry monitoring revealed no abnormal episodes -Pacemaker interrogation reveal prolonged episode of atrial flutter for 50 mins - per Dr. Mills this was not associated with his syncopal episode as the times are different -Cardiology following - will follow up on Jun [address] Mills. Pt started on cardizem - DC norvasc and losartan (please see Dr. Tello noted) - tiolerating well. ok to DC to home - echo showing EF 35-40% which is a decrease in EF from March 2017 60-65%. Moderate to severe . - Possibly cardiomyopathy d/t tachycardia - medicatiosns were changed for better rate control. Plan for f/u with cards as outpt - may benefit from Shreyas to evaluate , cardiac cath vs stress test. (2) Acute kidney injury Comment: -Likely due to hypovolemia -Resolved; Cr now at baseline at 1.5 (3) Chronic anemia Comment: -Drop in Hgb from 11.1 to 10.3 is likely dilutional -Macrocytic anemia- pt is not deficient in Folate or B12 (4) Coronary artery disease Comment: -Continue metoprolol, Lipitor, Eliquis (5) Hypertension Comment: - controlled -Continue current medication Status and Disposition: D/c home
--- NOTE | 2018-05-31 15:47 | DS ---
DISCHARGE SUMMARY: DATE OF ADMISSION: 05/29/18 DATE OF DISCHARGE: 05/31/18 PROVIDER: Dileep Sears NP ATTENDING PHYSICIAN: Dr. Ordonez * (report dictated by Dileep Sears NP). PRIMARY CARE PROVIDER: Dr. Donis. BOILERMAKER: Dr. Mills. DISCHARGE DIAGNOSES: 1. Syncope. 2. 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 3. Moderate to severe aortic stenosis. SECONDARY DIAGNOSES: 1. Tachy-ernestina syndrome, status post dual-chamber pacemaker placement. 2. Atrial fibrillation, on Eliquis. 3. Coronary artery disease, status post coronary artery bypass grafting with multiple stents. 4. Hypertension. 5. Hyperlipidemia. HISTORY OF PRESENT ILLNESS AND HOSPITAL COURSE: Please see history and physical by Dayanara Nelson NP for full admission details, but in summary, this is an 88-year-old male with a past medical history as stated above, who presented to the emergency department on 05/29/18 after he had a syncopal episode. The patient reported that over the past 2 weeks he had been having periodic episodes of lightheadedness and had an episode the morning of admission after taking his blood pressure medication, then it resolved. He stated he went to the store with his and suddenly felt weak and dizzy with cold sweats and went to sit down and his came over to check on him and found him unresponsive in the chair and was unsure the amount of time he had lost consciousness. She reported when he gained consciousness he looked very pale, and upon EMS arrival, he was noted to have blood pressure systolically in the 70s. In the emergency department, he had an EKG which showed he was in paced rhythm with the rate in the 60s. He underwent a chest x- ray, which revealed no acute findings. In the emergency department, he was back to his normal self. Denying any dizziness, lightheadedness, or shortness of breath. No recent upper respiratory illness. No fever or chills. The patient did report he had diagnosis of bronchitis several weeks ago and was treated with azithromycin, but reports those symptoms had resolved. He did report some increasing shortness of breath with exertion; however, states that this has been stable for years. To compare, it is not any worse. He denied any feelings of palpitations. He was admitted to the hospitalist team for further workup of his syncope. He was monitored on telemetry with no noted arrhythmias on telemetry monitoring. He underwent a pacemaker interrogation which did show a 50-minute run of atrial fibrillation; however, this was after the time he had the syncopal episode. This was reviewed by Dr. Mills, operations lead, who does not think it is connected to the syncope. His orthostatic vital signs were within normal limits. The patient underwent an echocardiogram, which showed a new cardiomyopathy with an ejection fraction of 35% to 40%, which was down from his echo in March 2017, which was 60% to 65%. He was found to have moderate to severe aortic stenosis. Evaluation by Cardiology was that the syncopal episode was of unclear etiology. One thought is that he has a newly diagnosed aortic stenosis as well as a newly documented LV dysfunction raised the possibility of a tachycardia-induced cardiomyopathy versus progression of his coronary artery disease. Also the report of decreased exercise tolerance over the past month may indicate the progression of his valvular heart disease and/ or his coronary artery disease. The patient will follow up with Dr. Mills, operations lead, as an outpatient for a possible cardiac nuclear stress test versus cardiac catheterization. As well, the patient may benefit from a KIZZY to evaluate his aortic stenosis. Recommendation was to discontinue afterloading reducing agents and his amlodipine and losartan were discontinued and he was started on Cardizem 120 mg p.o. daily to help better control his heart rate and AFib and avoid afterload reduction. The patient has tolerated this medication change well. Today on discharge, the patient is very anxious to go home. He reports that he has felt well throughout his hospitalization. He denies having any further lightheadedness, dizziness, or presyncopal or syncopal episodes. He states understanding of the discharge instructions and will follow up with Dr. Mills on 06/17/18. He was instructed to return to the emergency department with any further worsening of symptoms. DISCHARGE MEDICATIONS: 1. Eliquis 5 mg p.o. b.i.d. 2. Lipitor 40 mg p.o. every other day and 20 mg every other day. 3. Acetaminophen 1000 mg p.o. q.8 hours p.r.n. 4. Metoprolol tartrate 12.5 mg p.o. b.i.d. 5. Nitroglycerin 0.4 mg sublingual q.5 minutes p.r.n. 6. Vitamin D3 5000 units p.o. daily. 7. Cardura 4 mg p.o. at bedtime. 8. Diltiazem 120 mg p.o. daily. NEW MEDICATIONS: Discharge medications: 1. Losartan 100 mg p.o. daily. 2. Amlodipine 5 mg p.o. daily. DISCHARGE PLAN: 1. Follow up with primary care provider within 1 week. 2. Follow up with Dr. Mills on 06/17/18 at currently scheduled appointment. 3. The patient was instructed to return to the emergency department if he has any worsening or concerning symptoms. 4. Discussed heart healthy diet with low sodium. 5. Stable for discharge to home. TIME SPENT: Approximately 60 minutes were spent on this discharge. DILEEP SEARS NP [id number]/[facility] #: [id number] [place]
== END 2018-05-31 14:22 | disposition home or self-care (01) ==
LOC: EDBD → MERGE 14:23 → ED 14:23 → MEDTELE 17:13
PROVIDERS: ADMIT Internal Medicine; ATTEND Student in an Organized Health Care Education/Training Program
DX: R55 Syncope and collapse (principal); I42.9 Cardiomyopathy, unspecified; I35.0 Nonrheumatic aortic (valve) stenosis; I49.5 Sick sinus syndrome; Z95.0 Presence of cardiac pacemaker; I48.91 Unspecified atrial fibrillation; Z79.01 Long term (current) use of anticoagulants; I25.10 Atherosclerotic heart disease of native coronary artery without angina pectoris; Z95.1 Presence of aortocoronary bypass graft; Z95.5 Presence of coronary angioplasty implant and graft; I10 Essential (primary) hypertension; E78.5 Hyperlipidemia, unspecified; Z79.899 Other long term (current) drug therapy; Z87.891 Personal history of nicotine dependence
CPT/HCPCS: 36415; 71045; 80048; 80053; 81003; 82607; 82746; 83605; 83735; 83880; 84439; 84443; 84484; 85025; 85610; 86140; 93005; 93306; 96360; 96361; 99282; A9270-GY; C8929; G0378